=== PATIENT | male | born 1985 | race Caucasian/White ===

== ENCOUNTER 2024-08-17 16:07 | Emergency (ER) | payer MEDICAID, SELFPAY ==
[2024-08-17 16:25] VITALS: PULSE 59; RESP 18; O2SAT 98; BMI 20.3
[2024-08-17 16:30] VITALS: BP 134/92; PULSE 61; RESP 18; TEMP 37.1; O2SAT 96; BMI 20.3
--- NOTE | 2024-08-17 16:33 | PD.EDRME ---
Rapid Medical Screening Exam RME Arrival date/time: 08/17/24 16:07 39-year-old male presents to the emergency department complains of lower abdominal pain and back pain Chief Complaint: Abdominal Pain Time Seen by Provider: 08/17/24 16:25 Vital signs: Vital Signs Temperature 98.7 F 08/17/24 16:30 Pulse Rate 61 08/17/24 16:30 Respiratory Rate 18 08/17/24 16:30 Blood Pressure 134/92 H 08/17/24 16:30 Pulse Oximetry (%) 96 08/17/24 16:30 Oxygen Delivery Method Room Air 08/17/24 16:30
--- NOTE | 2024-08-17 16:34 | XR_ITS ---
Examination: CT abdomen and pelvis without contrast. Coronal 3-D reconstructions. Sagittal 2-D reconstructions. Date and time of exam:August 17, 2024 1652 hrs. Comparison January 05, 2021 Indications: Severe lower abdominal pain onset today, history 2 mm upper pole left renal calculus CTDI: vol (mGy): 4.72 DLP: (mGycm): 241 Technique: Axial images of the abdomen have been obtained, 3 mm slice thickness Intravenous contrast material has not been administered. Low dose protocols were performed. One or more of the following dose reduction techniques were used; automated exposure control, adjustment of the mA and/or KV according to patient size, use of iterative reconstruction technique. Findings: No focal liver lesion or biliary tract dilatation No gallstones Spleen is not enlarged No pancreatic or adrenal mass No renal calculi Mild left hydronephrosis, 3 mm calculus in the dependent portion of the bladder, axial image 168 Aorta normal size Appendix is not inflamed No bowel obstruction or diverticulitis Urinary bladder wall is thickened up to 5 mm The osseous structures are intact Impression: Mild left hydronephrosis, likely related to recent passage of a left ureteral calculus, now projecting in the deep dependent portion of the bladder No CT findings of appendicitis or bowel obstruction Cystitis pattern
[2024-08-17 16:46] LABS: Basophils % (Auto) 0 % (0-2.5); Eosinophils % (Auto) 1 % (0-10); Hematocrit 35.7 % (41.0-53.0); Hemoglobin 12.2 g/dL (13.5-16.0); Immature Granulocytes % (Auto) 0 % (0-0); Immature Granulocytes Auto 0.01 Thou/mm3 (0.00-0.00); Lymphocytes # (Auto) 1.2 Thou/mm3 (1.0-4.8); Lymphocytes % (Auto) 22 % (10-50); Mean Corpuscular HGB Conc 34.2 g/dl (31.0-37.0); Mean Corpuscular Hemoglobin 29.3 pg (25.0-35.0); Mean Corpuscular Volume 86 fL (80-100); Monocytes # (Auto) 0.3 Thou/mm3 (0.0-0.8); Monocytes % (Auto) 6 % (0-12); Neutrophils # (Auto) 3.8 Thou/mm3 (1.8-7.7); Neutrophils % (Auto) 71 % (37-80); Nucleated Red Blood Cell % 0 /100 WBC (0); Platelet Count 231 Thou/mm3 (140-440); RDW Standard Deviation 40.9 fL (35.1-43.9); Red Blood Count 4.16 Miln/mm3 (4.50-5.90); White Blood Count 5.3 Thou/mm3 (3.8-10.6)
[2024-08-17] MEDS: KETOROLAC INJ 30 MG/ML VIAL IM (16:47)
[2024-08-17 17:24] LABS: Alanine Aminotransferase 12 U/L (10-49); Albumin, Serum 4.7 gm/dL (3.5-5.0); Alcohol, Blood Medical < 10.0 mg/dL (0-10.0); Alkaline Phosphatase 60 U/L (46-116); Anion Gap 6 (7-16); Aspartate Amino Transferase 19 U/L (0-34); BUN/Creatinine Ratio 9 Ratio (12-20); Bilirubin,Total 0.6 mg/dL (0.3-1.2); Blood Urea Nitrogen 8 mg/dL (9-23); Calcium 9.7 mg/dL (8.3-10.6); Calcium (Corrected) 9.7 mg/dL (8.5-10.1); Carbon Dioxide 31.4 mMol/L (20.0-31.0); Chloride 103 mMol/L (98-107); Creatinine (Component) 0.9 mg/dL (0.6-1.3); Globulin 2.3 gm/dL (2.3-3.5); Glucose 96 mg/dL (74-106); Lipase 21 U/L (12-53); Osmolality,Calculated 277 (275-295); Potassium 3.4 mMol/L (3.4-5.1); Sodium 140 mMol/L (136-145); eGFR > 60 See Note
[2024-08-17 18:08] LABS: Collection Type, Urine Clean Catch; Squamous Epithelial Cell,Urine 0 /hpf (0-5)
[2024-08-17 18:25] LABS: Amphetamine/Methamp Scrn,U Negative (Negative); Barbiturate Screen,Urine Negative (Negative); Benzodiazepines Screen,Urine Positive (Negative); Benzoylecgonine Screen, Ur Negative (Negative); Bilirubin,Urine Negative (Negative); Blood,Urine 3+ (Negative); Clarity,Urine Turbid (Clear/Hazy); Color,Urine Yellow (Lt Yel-Yel); Culture Indicated,Urine Not Indicated; Fentanyl Screen,Urine Negative (Negative); Glucose, Urine Negative (Negative); Ketones,Urine Negative (Negative); Leukocyte Esterase,Urine Negative (Negative); Nitrite,Urine Negative (Negative); Opiate Screen,Urine Negative (Negative); PH,Urine 6.5 (5.0-7.0); Protein,Urine 1+ (Neg - Trace); RBC,Urine 2172 /hpf (0-3); Specific Gravity,Urine 1.025 (1.001-1.035); THC Screen,Urine Negative (Negative); Urobilinogen,Urine Negative mg/dL (0.0-1.0); WBC,Urine 6 /hpf (0-5)
[2024-08-17 18:26] VITALS: BP 151/97; PULSE 56; RESP 18; O2SAT 100
--- NOTE | 2024-08-17 18:39 | PD.EDABDPN ---
ED Abdominal Pain RME/HPI General Chief Complaint: Abdominal Pain Stated complaint: ABDOMINAL PAIN Time seen by provider: 08/17/24 16:25 Arrival date/time: 08/17/24 16:07 RME / HPI RME / HPI narrative: 08/17/24 16:07 39-year-old male presents to the emergency department complains of lower abdominal pain and back pain ------ Dr. Pérez?s Main ED Evaluation: 39yo male presents to the ED for a chief complaint of left flank pain x 1 day. Patient states the pain radiates to his back, describing his pain as sharp in nature. Patient reports associated nausea and vomiting. He denies any fever, chills or any other associated symptoms. Patient denies any history of kidney stones. Patient states he is on suboxone and is requesting pain medications that aren't opioids. Patient notes having familial and home stressors, but denies any SI or HI. Related Data Home Medications ?Medication ?Instructions ?Recorded ?Confirmed gabapentin 300 mg capsule 600 mg PO TID 06/02/18 01/18/22 ondansetron 8 mg disintegrating 8 mg PO TID PRN Nausea 06/02/18 01/18/22 tablet (Zofran ODT) dextroamphetamine-amphetamine 30 30 mg PO BID 09/08/19 01/05/21 mg tablet (Adderall) quetiapine 200 mg tablet 200 tab PO QDAY 01/18/22 01/18/22 Previous Rx's ?Medication ?Instructions ?Recorded hydrocodone 5 mg-acetaminophen 325 1 tab PO BID PRN pain #14 tabs 01/05/21 mg tablet ibuprofen 800 mg tablet 800 mg PO TID PRN pain #30 tabs 01/05/21 bacitracin 500 unit/gram topical 1 applic topical Q8H #14 grams 08/31/23 ointment ibuprofen 400 mg tablet 400 mg PO Q8H #20 tabs 08/31/23 acetaminophen 500 mg tablet 1,000 mg (2 x 500 mg) PO Q6H PRN 08/17/24 pain 5 days #40 tabs ibuprofen 600 mg tablet 600 mg PO Q6H PRN pain 5 days #20 08/17/24 tabs Allergies Allergy/AdvReac Type Severity Reaction Status Date / Time morphine Allergy Intermediate Nausea Verified 01/13/22 21:47 tramadol Allergy Intermediate Rash Verified 01/13/22 21:47 Review of Systems Review of Systems Systems Reviewed: All systems reviewed, normal except as documented Past Medical History Past Medical History NEUROLOGIC: Positive Neurological Disorders, Seizures, Migraine and Head Trauma; Negative Cerebrovascular Accident, Transient Ischemic Attacks (TIA), Dementia, Alzheimer's Disease, Parkinson's Disease, Brain Tumor, Meningitis, Epilepsy, Multiple Sclerosis, Cerebral Palsy, Amyotrophic Lateral Sclerosis (ALS/Vanesa Gehrig's), Guillain-[place] Syndrome, Spina Bifida, Paralysis, Peripheral Neuropathy, Olivier's Palsy, Subdural Hematoma, Spinal Cord Injury or Traumatic Brain Injury CARDIAC: Negative Cardiac Disorders, Myocardial Infarction, Cardiac Arrhythmia, Atrial Fibrillation, Angina, Heart Murmur, Coronary Artery Disease, Atherosclerotic Heart Disease, Peripheral Vascular Disease, Hypercholesterolemia, Aneurysm, Congestive Heart Failure, Congenital Heart Disease, Valvular Heart Disease, Rheumatic Fever, Cardiomyopathy, Edema, Pericarditis, Cellulitis, Deep Vein Thrombosis, Hypertension, Hypotension or Varicose Veins RESPIRATORY: Negative Chronic Obstructive Pulmonary Disease (COPD), Asthma, Bronchitis, Emphysema, Pneumonia, Pulmonary Fibrosis, Cystic Fibrosis, Tuberculosis, Pulmonary Embolism, Pulmonary Edema or Sleep Apnea GASTROINTESTINAL: Negative Gastrointestinal Disorders, Hepatitis, Cirrhosis, Pancreatitis, Celiac Disease, Gall Bladder Disease, Gastrointestinal Bleed, Esophageal Varices, Tamez's Esophagus, Colitis, Ulcerative Colitis, Diverticulitis, Diverticulosis, Ulcer, Irritable Bowel, Crohn's Disease, Obstructive Bowel, Hiatal Hernia, Hemorrhoids, Gastroesophageal Reflux Disease or Obesity GENITOURINARY: Negative Genitourinary Disorders, Renal Disease, Kidney Stones, Polycystic Kidney Disease, Neurogenic Bladder, Inguinal Hernia, Dialysis or Benign Prostatic Hyperplasia REPRODUCTIVE: Negative Fibroids, Genital Herpes, Gonorrhea, Syphilis or Testicular Cancer MUSCULOSKELETAL: Positive Musculoskeletal Disorders, Degenerative Disk Disease, Fibromyalgia and Fractures; Negative Muscular Dystrophy, Myasthenia Gravis, Marfan's Syndrome, Carpal Tunnel Syndrome, Degenerative Joint Disease or Osteomyelitis ENT: Positive Head Trauma; Negative Cataracts, Glaucoma, Blind, Retinal Detachment, Macular Degeneration, Ear Infection, Deafness or Eye Prosthesis ENDOCRINE: Negative Endocrine Disorders, Diabetes Mellitus Type 1, Diabetes Mellitus Type 2, Hypoglycemia, [place]'s Disease, Hyperthyroidism, Hypothyroidism, Parathyroid Disease, Pituitary Disease, Systemic Lupus Erythematosus, Syndrome of Inappropriate Antidiuretic Hormone (SIADH), Adrenal Disease or Graves' Disease HEMATOLOGIC: Negative Blood Disorders, Anemia, Leukemia, Hemophilia, Thalassemia, Sickle Cell Disease or Clotting Problems PSYCHO/SOCIAL: Positive Recreational Drug Use, Depression, Anxiety and Attention Deficit Hyperactivity Disorder; Negative Psychiatric Problems, Schizophrenia, Bipolar Disorder, Behavior Problems, Self-Mutilation, Depression, Post Traumatic Stress Disorder or Eating Disorder OTHER HISTORY: Positive Hospitalization, Shingles and Chicken Pox; Negative Autoimmune Disease, Down Syndrome, Autism, Developmental Delay, Falls, Blood Transfusions, Blood Transfusion Reaction, Anesthesia Reactions, Organ Transplant, Chemotherapy, Radiation Therapy, Hyperbaric Therapy, MRSA, Human Immunodeficiency Virus (HIV), Measles, Mumps, Pertussis, Clostridium Difficile, Cancer or Testicular Cancer Family History FAMILY HISTORY: Positive Family Cardiac Disorders and Family Surgery; Negative Family Psychiatric Problems, Family Respiratory Disorders, Family Gastrointestinal Problems, Family Cancer or Family Anesthesia Reaction Surgical History SURGICAL: Negative Cardiac Surgery, Open Heart Surgery, Coronary Artery Bypass Graft, Valve Replacement, Vascular Surgery, Coronary Stent, Pacemaker, Angiogram, Auto Implanted Cardiovert Defib, Carotid Endarterectomy, Endocrine Surgery, Thyroidectomy, Ear Surgery, Tympanostomy Tube, Eye Surgery, Nose Surgery, Oral Surgery, Tonsillectomy, Adenoidectomy, Cochlear Implant, Corneal Transplant, Throat Surgery, Abdominal Surgery, Tracheostomy, Gastric Bypass Surgery, Gastrostomy, Bowel Surgery, Nephrectomy, Transurethral Resection, Joint Replacement, Amputation, Open Reduction Internal Fixation, Arthroscopy, Neurologic Surgery, Brain Shunt, Vasectomy or Organ Transplant Social History SMOKING STATUS: Current every day smoker SUBSTANCE USE: marijuana and painkillers ED Exam Narrative Physical exam: GENERAL APPEARANCE: alert and oriented x 4, well-developed, well-nourished, no acute distress VITALS: All vitals were reviewed and the pulse ox is 100% on room air, which is normal according to my interpretation. HEENT: Normocephalic, atraumatic; pupils equal, round, reactive to light; EOMI; mucous membranes pink, moist; oropharynx clear NECK: Supple LUNGS: CTABL; no wheezes, no rales, no rhonchi HEART: Regular rate, regular rhythm; normal S1, S2; no murmurs ABDOMEN: non distended; normal BS; soft, mild left upper and lower tenderness, left flank tenderness, no guarding, no rebound; no masses, no organomegaly, no hernia BACK: left CVA tenderness EXTREMITIES: atraumatic; no edema NEUROLOGIC: awake; alert and oriented x4; cranial nerves II-XII grossly intact; no focal sensory or motor deficits PSYCHIATRIC: appropriate mood and affect SKIN: warm, dry, normal color; no rashes Course Quality Measures none Orders Category Date Time Status IV [Insert IV] NOW Care 08/17/24 18:[address] abdomen pelvis wo con Stat Exams 08/17/24 16:34 Completed Alcohol, Blood Medical Stat Lab 08/17/24 16:41 Completed CBC Stat Lab 08/17/24 16:41 Completed Comprehensive Metabolic Panel Stat Lab 08/17/24 16:41 Completed Drug Screen,Urine Stat Lab 08/17/24 17:56 Completed Lipase Stat Lab 08/17/24 16:41 Completed UA, C/S IF [Urinalysis, C/S if Indicated] Stat Lab 08/17/24 17:56 Completed Acetaminophen Ivpb [Ofirmev Inj] Med 08/17/24 18:49 Discontinued 1,000 mg in 100 ml IV Q6H Acetaminophen Ivpb [Ofirmev Inj] Med 08/17/24 19:05 Discontinued 1,000 mg in 100 ml IV X1 Ketorolac Inj [Toradol Inj] Med 08/17/24 16:34 Discontinued 30 mg IM X1 ONE LORazepam [Ativan Inj] Med 08/17/24 19:06 Discontinued 0.5 mg IVP X1 ONE Vital Signs Vital signs: Vital Signs Temperature 98.7 F 08/17/24 16:30 Pulse Rate 61 08/17/24 16:30 Respiratory Rate 18 08/17/24 16:30 Blood Pressure 134/92 H 08/17/24 16:30 Pulse Oximetry (%) 96 08/17/24 16:30 Oxygen Delivery Method Room Air 08/17/24 16:30 Abdominal Pain MDM MDM Narrative MDM Narrative:: Scribe Attestation: 08/17/24 Julisa Love am scribing for and in the presence of Dr. Pérez. Patient data External records reviewed:: [facility] previous records (Per chart review, patient has no relevant previous ED visits.) Clinical information provided by:: patient Social determinants that could affect healthcare access:: substance use (history of; is on suboxone) Patient has the following chronic illnesses:: none How is presenting disease/condition affected by chronic disease/condition?: no chronic disease Evaluation data The following diagnostics were reviewed and interpreted by me:: lab results and radiology exam(s) Lab and/or radiology exams considered but not ordered:: none Interpretation Summary: CBC is normal, CMP is normal, Lipase is normal, UA shows 2172 RBCs and 6 WBCs, according to my interpretation. ------- [facility] Report Signed Patient: JAH COYNE Record#: [id number] Birthdate: 1985 Age/Sex: 39 / M Location: [facility] Attending Dr: Ordering Physician: Philip CISNEROS)Glen NP Date of Service: 08/17/24 Procedure(s): CT abdomen pelvis wo con Accession Number(s): [id number] cc: Philip (JASON),Glen GOMEZ; Amador Louis MD; Perez Da Silva MD~ Examination: CT abdomen and pelvis without contrast. Coronal 3-D reconstructions. Sagittal 2-D reconstructions. Date and time of exam:August 17, 2024 1652 hrs. Comparison January 05, 2021 Indications: Severe lower abdominal pain onset today, history 2 mm upper pole left renal calculus CTDI: vol (mGy): 4.72 DLP: (mGycm): 241 Technique: Axial images of the abdomen have been obtained, 3 mm slice thickness Intravenous contrast material has not been administered. Low dose protocols were performed. One or more of the following dose reduction techniques were used; automated exposure control, adjustment of the mA and/or KV according to patient size, use of iterative reconstruction technique. Findings: No focal liver lesion or biliary tract dilatation No gallstones Spleen is not enlarged No pancreatic or adrenal mass No renal calculi Mild left hydronephrosis, 3 mm calculus in the dependent portion of the bladder, axial image 168 Aorta normal size Appendix is not inflamed No bowel obstruction or diverticulitis Urinary bladder wall is thickened up to 5 mm The osseous structures are intact Impression: Mild left hydronephrosis, likely related to recent passage of a left ureteral calculus, now projecting in the deep dependent portion of the bladder No CT findings of appendicitis or bowel obstruction Cystitis pattern Dictated By: Perez Da Silva MD Signed By: <Electronically signed by Perez Da Silva MD in [place]> 08/17/24 1733 Medications / Prescriptions Medications or Prescriptions considered but not ordered:: none Medication administrations:: Medication Administration History Discontinued Medications Acetaminophen (Ofirmev Inj) 1,000 mg in 100 mls @ 250 mls/hr IV Q6H CARTER Stop: 08/18/24 13:12 Last Admin: 08/17/24 19:11 Dose: Not Given Documented By: MARLYS Non-Admin Reason: Cancelled by Provider Acetaminophen (Ofirmev Inj) 1,000 mg in 100 mls @ 250 mls/hr IV X1 ONE Stop: 08/17/24 19:28 Last Infusion: 08/17/24 19:33 Dose: Infused Documented By: Admin: 08/17/24 19:06 Dose: 250 mls/hr Documented By: EH Ketorolac Tromethamine (Ketorolac Inj 30 Mg/Ml Vial) 30 mg IM X1 ONE Stop: 08/17/24 16:35 Last Admin: 08/17/24 16:47 Dose: 30 mg Documented By: DENA Lorazepam (Lorazepam 2 Mg/Ml Vial) 0.5 mg IVP X1 ONE Stop: 08/17/24 19:07 Last Admin: 08/17/24 19:44 Dose: 0.5 mg Documented By: MARLYS see above Consultations Consultation(s) initiated? (list below): No Diagnosis Differential diagnosis abdominal pain: other (cystitis, UTI, kidney stones, pyelonephritis) Most likely diagnosis given after review of the tests above:: see below Admission Indicated Admission indicated?: not indicated Admission Request Was there a request for admission?: No Disposition Plan Disposition Plan: Discharge Discharge Attestation Discharge Attestation: The patient and all family members were given an opportunity to ask questions and understood the discharge instructions. Discharge instructions specifically effects, indications for sooner follow up or return to the emergency department, and the expected course of current diagnosis. Patient condition: Stable Discharge Plan Plan Patient Disposition: HOME (Self Care) Disposition Comment: Stable for discharge Patient condition on transfer: Stable Prescriptions/Referrals Prescriptions/Med Rec: New ibuprofen 600 mg tablet 600 mg PO Q6H PRN (Reason: pain) 5 Days Qty: 20 0RF acetaminophen 500 mg tablet 1,000 mg PO Q6H PRN (Reason: pain) 5 Days Qty: 40 0RF No Action ondansetron [Zofran ODT] 8 mg tablet,disintegrating 8 mg PO TID PRN (Reason: Nausea) gabapentin 300 mg capsule 600 mg PO TID dextroamphetamine-amphetamine [Adderall] 30 mg Tablet 30 mg PO BID ibuprofen 800 mg tablet 800 mg PO TID PRN (Reason: pain) Qty: 30 0RF hydrocodone-acetaminophen 5-325 mg tablet 1 tab PO BID MDD 4 PRN (Reason: pain) Qty: 14 0RF quetiapine 200 mg tablet 200 tab PO QDAY bacitracin 500 unit/gram ointment 1 applic topical Q8H Qty: 14 0RF ibuprofen 400 mg tablet 400 mg PO Q8H Qty: 20 0RF Referrals: Amador Louis MD [Primary Care Provider] - In 1 week Problem List Clinical Impression: Renal colic Patient/Caregiver Discharge Instructions Discharge Activity: activity as tolerated Education Materials: Anatomy of the Male Urinary Tract, ED Kidney Stone w/ Colic Additional Instructions: Please return to the emergency department if you notice any worsening or any further medical problems Otherwise you should follow-up with your primary care doctor within the next several days Print Language: Slovak Stand Alone Forms: [employer] Award Info., Patient Portal Info Letter
[2024-08-17] MEDS: ACETAMINOPHEN IVPB 1,000 MG/100 ML VIAL 250 MG IV (19:06)
[2024-08-17] MEDS: LORazepam 2 MG/ML VIAL 0.5 MG IVP (19:44)
== END 2024-08-17 20:35 | disposition home or self-care (01) ==
PROVIDERS: Nurse Practitioner Primary Care; Emergency Provider Emergency Medicine; PCP Family Medicine
DX: N13.2 Hydronephrosis with renal and ureteral calculous obstruction (principal)
CPT/HCPCS: 36415; 74176; 80053; 80307; 80320; 81001; 83690; 85025; 96365; 96372; 99284; J0131; J1885; J2060; G0480

== ENCOUNTER → 2024-11-19 | Outpatient (CLI) | payer MEDICAID, SELFPAY ==
--- NOTE | 2024-11-19 17:04 | XR_ITS ---
Examination: Foot bilateral, 6 views Technique: AP, oblique, lateral views each foot total 6 views Date and time of exam: November 19, 2024 1718 hours INDICATIONS: Bilateral foot pain beginning one month ago. FINDINGS: Mild bilateral narrowing first metatarsophalangeal joints Mild osteoarthritis tibiotalar, talonavicular and intertarsal joints No erosive arthritis No fractures IMPRESSION: Mild osteoarthritis
--- NOTE | 2024-11-19 17:04 | XR_ITS ---
Examination: Ankle Bilateral, 6 views Technique: AP oblique lateral each ankle total 6 views Date and time of exam: November 19, 2024, 1718 hours INDICATIONS: Bilateral ankle pain beginning one month ago Findings: No fracture or dislocation Minimal narrowing tibiotalar talonavicular and intertarsal joints bilaterally No erosive arthritis No cortical bone destruction IMPRESSION: Mild bilateral osteoarthritis
== END | disposition home or self-care (01) ==
PROVIDERS: PCP Family Medicine; Referring Provider Family Medicine; Visit Provider Family Medicine
DX: M19.072 Primary osteoarthritis, left ankle and foot (principal); M19.071 Primary osteoarthritis, right ankle and foot
CPT/HCPCS: 73610; 73630

== ENCOUNTER 2025-03-01 11:48 | Emergency (ER) | payer MEDICAID, SELFPAY ==
[2025-03-01 11:50] VITALS: BMI 24.0
[2025-03-01 12:10] VITALS: BP 117/83; PULSE 95; RESP 18; TEMP 36.7; O2SAT 98
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
[2025-03-01] MEDS: cefTRIAXone SOD INJ 1,000 MG VIAL 1000 MG IM (12:34)
[2025-03-01] MEDS: LIDOCAINE HCL 1% 20 ML VIAL 2.1 ML INFL (12:34)
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
[2025-03-01] MEDS: KETOROLAC INJ 30 MG/ML VIAL IM (14:20)
== END 2025-03-01 14:23 | disposition home or self-care (01) ==
PROVIDERS: Emergency Provider Nurse Practitioner Primary Care; PCP Family Medicine
DX: R51.9 Headache, unspecified (principal); S50.312A Abrasion of left elbow, initial encounter; V19.3XXA Pedal cyclist (driver) (passenger) injured in unspecified nontraffic accident, initial encounter
CPT/HCPCS: 70450; 96372; 99283; J0696; J1885; J3490; A9270

== ENCOUNTER 2025-03-05 12:36 | Emergency (ER) | payer MEDICAID, SELFPAY ==
[2025-03-05 12:51] VITALS: BP 144/95; PULSE 85; RESP 18; TEMP 36.9; O2SAT 95; BMI 21.5
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
== END 2025-03-05 14:24 | disposition home or self-care (01) ==
PROVIDERS: Emergency Provider Family Medicine
DX: S40.812A Abrasion of left upper arm, initial encounter (principal); X58.XXXA Exposure to other specified factors, initial encounter
CPT/HCPCS: 99283

== ENCOUNTER 2025-04-08 14:18 | Emergency (ER) | payer MEDICAID, SELFPAY ==
[2025-04-08 15:28] VITALS: BP 169/121; BP 192/122; PULSE 71; RESP 20; TEMP 36.7; O2SAT 97
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
[2025-04-08 16:18] LABS: Collection Type, Urine Clean Catch
[2025-04-08 16:22] LABS: Basophils # (Auto) 0.0 Thou/mm3 (0.0-0.2); Basophils % (Auto) 0 % (0-2.5); Eosinophils # (Auto) 0.1 Thou/mm3 (0.0-0.5); Eosinophils % (Auto) 1 % (0-10); Hematocrit 39.2 % (41.0-53.0); Hemoglobin 12.9 g/dL (13.5-16.0); Immature Granulocytes Auto 0.01 Thou/mm3 (0.00-0.00); Lymphocytes # (Auto) 2.2 Thou/mm3 (1.0-4.8); Lymphocytes % (Auto) 38 % (10-50); Mean Corpuscular HGB Conc 32.9 g/dl (31.0-37.0); Mean Corpuscular Hemoglobin 28.4 pg (25.0-35.0); Mean Corpuscular Volume 86 fL (80-100); Monocytes # (Auto) 0.4 Thou/mm3 (0.0-0.8); Monocytes % (Auto) 7 % (0-12); Neutrophils # (Auto) 3.0 Thou/mm3 (1.8-7.7); Neutrophils % (Auto) 54 % (37-80); Nucleated Red Blood Cell # 0.00 Thou/mm3 (0.00-0.00); Nucleated Red Blood Cell % 0 /100 WBC (0); Platelet Count 276 Thou/mm3 (140-440); RDW Standard Deviation 41.1 fL (35.1-43.9); Red Blood Count 4.54 Miln/mm3 (4.50-5.90); White Blood Count 5.7 Thou/mm3 (3.8-10.6)
[2025-04-08 16:23] LABS: Bilirubin,Urine Negative (Negative); Blood,Urine Negative (Negative); Clarity,Urine Clear (Clear/Hazy); Color,Urine Colorless (Lt Yel-Yel); Culture Indicated,Urine Not Indicated; Glucose, Urine Negative (Negative); Ketones,Urine Negative (Negative); Leukocyte Esterase,Urine Negative (Negative); Nitrite,Urine Negative (Negative); PH,Urine 7.0 (5.0-7.0); Protein,Urine Negative (Neg - Trace); RBC,Urine 1 /hpf (0-3); Specific Gravity,Urine 1.006 (1.001-1.035); Squamous Epithelial Cell,Urine < 1 /hpf (0-5); Urobilinogen,Urine Negative mg/dL (0.0-1.0); WBC,Urine < 1 /hpf (0-5)
[2025-04-08 16:30] LABS: Amphetamine/Methamp Scrn,U Negative (Negative); Barbiturate Screen,Urine Negative (Negative); Benzodiazepines Screen,Urine Positive (Negative); Benzoylecgonine Screen, Ur Negative (Negative); Fentanyl Screen,Urine Negative (Negative); Opiate Screen,Urine Negative (Negative); THC Screen,Urine Negative (Negative)
[2025-04-08 16:50] LABS: Alanine Aminotransferase 8 U/L (10-49); Albumin, Serum 4.5 gm/dL (3.5-5.0); Albumin/Globulin Ratio 2.0 (1.2-2.2); Alkaline Phosphatase 66 U/L (46-116); Anion Gap 8 (7-16); Aspartate Amino Transferase 19 U/L (0-34); BUN/Creatinine Ratio 8 Ratio (12-20); Bilirubin,Total 0.5 mg/dL (0.3-1.2); Blood Urea Nitrogen 6 mg/dL (9-23); Calcium 10.3 mg/dL (8.3-10.6); Calcium (Corrected) 10.3 mg/dL (8.5-10.1); Carbon Dioxide 33.8 mMol/L (20.0-31.0); Chloride 103 mMol/L (98-107); Creatinine (Component) 0.8 mg/dL (0.6-1.3); Globulin 2.3 gm/dL (2.3-3.5); Glucose 66 mg/dL (74-106); Lipase 21 U/L (12-53); Osmolality,Calculated 284 (275-295); Potassium 4.5 mMol/L (3.4-5.1); Sodium 145 mMol/L (136-145); Total Protein 6.8 gm/dL (5.7-8.2); eGFR > 60 See Note
[2025-04-08] MEDS: KETOROLAC INJ 60 MG/2 ML VIAL 15 MG IM (17:22)
--- NOTE | 2025-04-08 23:11 | PC.NURSE ---
PT ELOPED THE ER DUE TO LONG WAIT TIME FOR RESULTS. PROVIDERS WERE NOTIFIED ABOUT PATIENTS RESULTS BEING BACK.
== END 2025-04-08 23:13 | disposition left against medical advice (07) ==
PROVIDERS: Emergency Provider Emergency Medicine
DX: R10.9 Unspecified abdominal pain (principal); Z88.5 Allergy status to narcotic agent; Z53.21 Procedure and treatment not carried out due to patient leaving prior to being seen by health care provider
CPT/HCPCS: 36415; 74177; 80053; 80307; 81001; 83690; 85025; 96372; 99283; A4649; J1885; Q9967